=== PATIENT | female | born 1985 | race American Indian/Alaskan Native ===

== ENCOUNTER 2019-05-04 21:39 | Emergency (ER) | payer MEDICAID ==
[2019-05-04] MEDS ORDERED: MORPHINE IV ONE (22:11)
[2019-05-04] MEDS ORDERED: ZOFRAN IV ONE (22:11)
--- NOTE | 2019-05-04 22:18 | Emergency Department Report ---
HPI - General Chief Complaint: Abdominal Pain Time Seen by Provider: 05/04/19 21:49 - HPI HPI: 33-year-old -[place] female presents to the emergency department with complaint of right upper quadrant and epigastric abdominal pain that radiates towards her back. This is associated with some nausea without vomiting, subjective fever and chills. The patient recently was at [facility] for similar symptoms and was diagnosed with gallstones. She says that she has an appointment at the surgery center tomorrow but this evening the patient began having all of these symptoms again and they were more intense than usual. The patient says "it hit me like a ton of bricks." She has not taken anything for her symptoms prior to presentation. She also has a past medical history of asthma. She follows with the [facility] practice. Denies any tobacco or illicit drug use. 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, last used rescue inhaler 03/09) Hx COPD: No Hx HIV: No - Surgical History Past Surgical History?: Yes Additional Surgical History: , - Social History Smoking Status: Never Smoker - Medications Home Medications: Home Medications Medication Instructions Recorded Confirmed Last Taken Type Ibuprofen [Motrin] 800 mg PO Q8HR PRN #30 tablet 01/19/16 Unknown Rx ProAir HFA Inhaler 1 puff INHALATION ONCE PRN 01/19/16 01/19/16 Unknown History traMADol [Ultram 50 MG tab] 50 mg PO Q6HR PRN #20 tablet 01/19/16 Unknown Rx Ondansetron [Zofran Odt] 4 mg PO Q8HR PRN #12 tab.rapdis 05/05/19 Unknown Rx ED Review of Systems ROS: Stated complaint: GALLSTONES Other details as noted in HPI Comment: All other systems reviewed and negative Constitutional: chills, fever (subjective) Eyes: denies: eye pain, vision change ENT: denies: ear pain, throat pain Respiratory: denies: cough, shortness of breath Cardiovascular: denies: chest pain, palpitations Gastrointestinal: abdominal pain, nausea Genitourinary: denies: dysuria, discharge Musculoskeletal: back pain. denies: arthralgia Skin: denies: rash, lesions Neurological: denies: headache, weakness Physical Exam - Physical Exam Vital Signs: Vital Signs 05/04/19 21:50 Temperature 98.1 F Pulse Rate 75 Respiratory 16 Rate Blood Pressure 122/71 [Left] O2 Sat by Pulse 98 Oximetry Physical Exam: GENERAL: The patient is well-developed well-nourished. HENT: Normocephalic. Atraumatic. Patient has moist mucous membranes. EYES: Extraocular motions are intact. NECK: Supple. Trachea is midline. CHEST/LUNGS: Clear to auscultation. There is no respiratory distress noted. HEART/CARDIOVASCULAR: Regular. There is no tachycardia. There is no murmur. ABDOMEN: Abdomen is soft. Epigastric and right upper quadrant abdominal tenderness to palpation. No guarding. Patient has normal bowel sounds. Obese habitus. SKIN: Skin is warm and dry. NEURO: The patient is awake, alert, and oriented. The patient is cooperative. The patient has no focal neurologic deficits. Normal speech. MUSCULOSKELETAL: There is no tenderness or deformity. There is no evidence of acute injury. ED Course Vital Signs 05/04/19 21:50 Temperature 98.1 F Pulse Rate 75 Respiratory 16 Rate Blood Pressure 122/71 [Left] O2 Sat by Pulse 98 Oximetry ED Medical Decision Making - Lab Data Result diagrams: 05/04/19 22:25 05/04/19 22:25 - Radiology Data Radiology results: report reviewed Right upper quadrant abdominal ultrasound shows cholelithiasis without signs of cholecystitis. - Medical Decision Making This patient, with a recent history of cholelithiasis, presents with a return of abdominal pain, nausea and some subjective fever and chills. Labs have been mostly unremarkable. She was given some pain medication and a dose of nausea medication. Abdominal ultrasound shows cholelithiasis without cholecystitis. The patient has an appointment tomorrow with a general surgeon that she has been instructed to keep and attend. She was reevaluated and is feeling improved. She will be discharged home with some Zofran ODT. She will return to the ER with any worsening of her symptoms or any acute distress. - Differential Diagnosis cholelithiasis, cholecystitis, pancreatitis, gastritis Critical Care Time: No Critical care attestation.: If time is entered above; I have spent that time in minutes in the direct care of this critically ill patient, excluding procedure time. ED Disposition Clinical Impression: Cholelithiasis Qualifiers: Cholelithiasis location: gallbladder Cholecystitis presence: without cholecystitis Biliary obstruction: without biliary obstruction Qualified Code(s): K80.20 - Calculus of gallbladder without cholecystitis without obstruction Disposition: TO HOME OR SELFCARE Is pt being admited?: No Condition: Stable Instructions: Biliary Colic (ED), Abdominal Pain (ED) Additional Instructions: Please follow up with the general surgeon tomorrow as previously scheduled. Return to the emergency Department with any worsening of your symptoms or any acute distress. Try to stay away from greasy, fatty food and alcohol as this can exacerbate gallstones. Prescriptions: Ondansetron [Zofran Odt] 4 mg PO Q8HR PRN #12 tab.rapdis PRN Reason: Nausea Referrals: PRIMARY CARE, [Primary Care Provider] - 2-3 Days Time of Disposition: 00:13
[2019-05-04 22:45] LABS: Basophils # (Auto) 0.1 K/mm3 (0.0-0.1); Basophils % (Auto) 0.7 % (0.0-1.8); Eosinophils # (Auto) 0.1 K/mm3 (0.0-0.4); Eosinophils % (Auto) 0.9 % (0.0-4.3); Hematocrit 36.1 % (30.3-42.9); Lymphocytes # (Auto) 1.9 K/mm3 (1.2-5.4); Lymphocytes % (Auto) 22.3 % (13.4-35.0); Mean Corpuscular HGB Conc 33 % (30-34); Mean Corpuscular Volume 88 fl (79-97); Monocytes # (Auto) 0.4 K/mm3 (0.0-0.8); Platelet Count 210 K/mm3 (140-440); Red Blood Count 4.08 M/mm3 (3.65-5.03); Red Cell Distribution Width 13.7 % (13.2-15.2)
[2019-05-04 23:10] LABS: Alanine Aminotransferase 13 units/L (7-56); Albumin 3.6 g/dL (3.9-5); BUN/Creatinine Ratio 10; Blood Urea Nitrogen 13 mg/dL (7-17); Calcium 8.4 mg/dL (8.4-10.2); Hemolysis Index 7
[2019-05-04 23:11] LABS: Bilirubin,Direct < 0.2 mg/dL (0-0.2)
--- NOTE | 2019-05-05 00:07 | Ultrasound Report ---
ULTRASOUND ABDOMEN, LIMITED (RIGHT UPPER QUADRANT) INDICATION: RUQ and epigastric pain, hx of gallstones COMPARISON: None available. LIMITATIONS: None FINDINGS: Pancreas: Visualized portion shows no significant abnormality. Liver: Mildly enlarged. Hepatic length measures 18.9 cm. No focal lesions are obvious. Gallbladder: Small gallstones are noted dependently with shadowing. No wall thickening is seen. Techn ologist reported a positive Dempsey's sign. Bile ducts: Normal. Common Bile Duct measures 5 mm (clarified with the technologist). Right Kidney: Visualized portions show no abnormality. Free fluid: None. Additional Findings: None. IMPRESSION: Cholelithiasis without acute change seen Signer Name: Tahir Brito MD Signed: 05/05/2019 12:03 AM Workstation Name: [email or web address]
[2019-05-05 00:42] VITALS: BP 115/70
== END 2019-05-05 00:43 | disposition home or self-care (01) ==
LOC: ED 21:39
DX: K80.20 Calculus of gallbladder without cholecystitis without obstruction (principal); J45.909 Unspecified asthma, uncomplicated; Z79.899 Other long term (current) drug therapy
CPT/HCPCS: 36415; 76705; 80048; 80076; 83690; 84703; 85025; 96374; 96375; 99284; J2270; J2405